=== PATIENT | male | born 1945 | race Caucasian/White ===

== ENCOUNTER 2022-12-16 01:38 | Emergency (ER) | payer MEDICARE, OTHER ==
--- NOTE | 2022-12-16 01:43 | ERPHSYRPT ---
- History of Present Illness Time Seen by Provider: 12/16/22 01:43 Source: patient Exam Limitations: no limitations Physician History: This is a 77-year-old white male who is obese and has a history of high blood pressure. Originally, he was told to take metoprolol medication twice a day. However, during the day he was "bottoming out" on his blood pressure so he has been only taking his metoprolol in the evenings. He did take his evening dose. Patient also has a pacemaker in place. Patient has a history of atrial fibrillation and is taking Eliquis. Patient has a history of hyperlipidemia, gastroesophageal reflux disease and hypertension. This morning, patient stated there was a brief "twinge" of substernal nonradiating chest pain that he just noticed just prior to the time he took his blood pressure that showed a systolic pressure of approximately 200. It is completely resolved and he has no pain whatsoever in his chest. His gave him an Ativan 1 mg orally that she had of his that was old. Patient arrives to the emergency department a little anxious but in no pain. He has no shortness of breath. He has no other complaints. Timing/Duration: today Severity: mild (To moderate) Associated Symptoms: other Allergies/Adverse Reactions: No Known Drug Allergies Allergy (Unverified 12/16/22 01:47) Home Medications: Apixaban [Eliquis 5 mg Tablet] 5 mg PO DAILY 12/16/22 [History] Metoprolol Succinate [Toprol Xl] 25 mg PO BID 12/16/22 [History] Naproxen 500 mg PO BID PRN 12/16/22 [History] PANTOPRAZOLE 40 mg Tablet [Protonix 40MG Tablet] 40 mg PO DAILY 12/16/22 [History] Pravastatin Sodium 40 mg PO DAILY 12/16/22 [History] lisinopriL [Lisinopril] 5 mg PO DAILY 12/16/22 [History] Travel Risk - International Travel Have you traveled outside of the country in past 3 weeks: No - Coronavirus Screening Are you exhibiting any of the following symptoms?: No Close contact with a COVID-19 positive Pt in past 14-21 Days: No - Review of Systems Constitutional: No Symptoms Eyes: No Symptoms Ears, Nose, & Throat: No Symptoms Respiratory: No Symptoms Cardiac: No Symptoms Abdominal/Gastrointestinal: No Symptoms Genitourinary Symptoms: No Symptoms Musculoskeletal: No Symptoms Skin: No Symptoms Neurological: No Symptoms Psychological: No Symptoms Endocrine: No Symptoms Hematologic/Lymphatic: No Symptoms Immunological/Allergic: No Symptoms All Other Systems: Reviewed and Negative - Past Medical History Pertinent Past Medical History: Yes - Past Surgical History Past Surgical History: Yes - Nursing Vital Signs Nursing Vital Signs: Initial Vital Signs Temperature 96.9 F 12/16/22 01:48 Pulse Rate 105 H 12/16/22 01:48 Respiratory Rate 20 12/16/22 01:48 Blood Pressure 178/88 12/16/22 01:48 O2 Sat by Pulse Oximetry 98 12/16/22 01:48 Pain Scale Pain Intensity 0 - Physical Exam General Appearance: no apparent distress, alert, anxiety, obese Eye Exam: PERRL/EOMI, eyes nml inspection Ears, Nose, Throat Exam: normal ENT inspection, moist mucous membranes Neck Exam: normal inspection, non-tender, supple, full range of motion Respiratory Exam: normal breath sounds, lungs clear, airway intact, No chest tenderness, No respiratory distress Cardiovascular Exam: irregular Gastrointestinal/Abdomen Exam: soft, normal bowel sounds, No tenderness Rectal Exam: not done Back Exam: normal inspection, normal range of motion, No CVA tenderness, No vertebral tenderness Extremity Exam: normal inspection, normal range of motion, pelvis stable Neurologic Exam: alert, oriented x 3, cooperative, 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 I interpreted the twelve-lead EKG.) Ordered Tests: Active Orders 24 hr Category Date Time Status CBC W DIFF Stat Lab 12/16/22 02:19 Completed CMP Stat Lab 12/16/22 02:19 Completed TROPONIN Q4H Lab 12/16/22 02:38 Completed TROPONIN Q4H Lab 12/16/22 06:45 Ordered TROPONIN Q4H Lab 12/16/22 10:45 Ordered UA W/RFX UR CULTURE Stat Lab 12/16/22 02:19 Completed Medication Summary Discontinued Medications Generic Name Dose Route Start Last Admin Trade Name Emmanuelq PRN Reason Stop Dose Admin Metoprolol Tartrate 5 mg 12/16/22 02:35 Metoprolol Tartrate 5 Mg/5 Ml Vial IV 12/16/22 02:36 STAT ONE Metoprolol Tartrate Confirm 12/16/22 02:38 Metoprolol Tartrate 5 Mg/5 Ml Vial Administered 12/16/22 02:39 Dose 5 mg IV .STK-MED ONE Lab/Rad Data: Laboratory Result Diagrams 12/16/22 02:19 12/16/22 02:19 Laboratory Results 12/16/22 12/16/22 12/16/22 Range/Units 02:38 02:19 02:19 WBC 7.0 (4.0-10.5) x10^3/uL RBC 4.83 (4.1-5.6) x10^6/uL Hgb 14.9 (12.5-18.0) g/dL Hct 44.5 (42-50) % MCV 92.1 (78-100) fL MCH 30.8 (26-32) pg MCHC 33.5 (32-36) g/dL RDW 11.9 (11.5-14.0) % Plt Count 230 (150-450) x10^3/uL MPV 10.2 (7.5-11.0) fL Gran % 46.8 (36.0-66.0) % Immature Gran % (Auto) 0.1 (0.00-0.4) % Nucleat RBC Rel Count 0.0 (0.00-0.1) % Eos # (Auto) 0.11 (0-0.5) x10^3/uL Immature Gran # (Auto) 0.01 (0.00-0.03) x10^3u/L Absolute Lymphs (auto) 3.08 (1.0-4.6) x10^3/uL Absolute Monos (auto) 0.49 (0.0-1.3) x10^3/uL Absolute Nucleated RBC 0.00 (0.00-0.01) x10^3u/L Lymphocytes % 44.1 H (24.0-44.0) % Monocytes % 7.0 (0.0-12.0) % Eosinophils % 1.6 (0.00-5.0) % Basophils % 0.4 (0.0-0.4) % Absolute Granulocytes 3.26 (1.4-6.9) x10^3/uL Basophils # 0.03 (0-0.4) x10^3/uL Sodium 144 (137-145) mmol/L Potassium 3.8 (3.5-5.1) mmol/L Chloride 106 (98-107) mmol/L Carbon Dioxide 26 (22-30) mmol/L Anion Gap 15.3 H (5-15) MEQ/L BUN 13 (9-20) mg/dL Creatinine 0.90 (0.66-1.25) mg/dL Estimated GFR > 60.0 ML/MIN Glucose 115 H (74-106) mg/dL Calcium 8.8 (8.4-10.2) mg/dL Total Bilirubin 0.90 (0.2-1.3) mg/dL AST 44 (17-59) U/L ALT 28 (0-50) U/L Alkaline Phosphatase 59 (38-126) U/L Troponin I < 0.012 (0.000-0.034) ng/mL Serum Total Protein 8.4 H (6.3-8.2) g/dL Albumin 4.5 (3.5-5.0) g/dL Urine Color (Yellow) Urine Appearance (Clear) Urine pH (4.6-8.0) Ur Specific [place] (1.005-1.030) Urine Protein (Negative) Urine Glucose (UA) (Negative) mg/dL Urine Ketones (Negative) Urine Blood (Negative) Urine Nitrite (Negative) Urine Bilirubin (Negative) Urine Urobilinogen (0.2) mg/dL Ur Leukocyte Esterase (Negative) U Hyaline Cast (Auto) (0-2) /LPF Urine Microscopic RBC (0-5) /HPF Urine Microscopic WBC (0-5) /HPF Ur Epithelial Cells (None Seen) /HPF Urine Bacteria (None Seen) /HPF Urine Culture Reflexed (NO) 12/16/22 Range/Units 02:19 WBC (4.0-10.5) x10^3/uL RBC (4.1-5.6) x10^6/uL Hgb (12.5-18.0) g/dL Hct (42-50) % MCV (78-100) fL MCH (26-32) pg MCHC (32-36) g/dL RDW (11.5-14.0) % Plt Count (150-450) x10^3/uL MPV (7.5-11.0) fL Gran % (36.0-66.0) % Immature Gran % (Auto) (0.00-0.4) % Nucleat RBC Rel Count (0.00-0.1) % Eos # (Auto) (0-0.5) x10^3/uL Immature Gran # (Auto) (0.00-0.03) x10^3u/L Absolute Lymphs (auto) (1.0-4.6) x10^3/uL Absolute Monos (auto) (0.0-1.3) x10^3/uL Absolute Nucleated RBC (0.00-0.01) x10^3u/L Lymphocytes % (24.0-44.0) % Monocytes % (0.0-12.0) % Eosinophils % (0.00-5.0) % Basophils % (0.0-0.4) % Absolute Granulocytes (1.4-6.9) x10^3/uL Basophils # (0-0.4) x10^3/uL Sodium (137-145) mmol/L Potassium (3.5-5.1) mmol/L Chloride (98-107) mmol/L Carbon Dioxide (22-30) mmol/L Anion Gap (5-15) MEQ/L BUN (9-20) mg/dL Creatinine (0.66-1.25) mg/dL Estimated GFR ML/MIN Glucose (74-106) mg/dL Calcium (8.4-10.2) mg/dL Total Bilirubin (0.2-1.3) mg/dL AST (17-59) U/L ALT (0-50) U/L Alkaline Phosphatase (38-126) U/L Troponin I (0.000-0.034) ng/mL Serum Total Protein (6.3-8.2) g/dL Albumin (3.5-5.0) g/dL Urine Color Yellow (Yellow) Urine Appearance Clear (Clear) Urine pH 6.5 (4.6-8.0) Ur Specific [place] <=1.005 (1.005-1.030) Urine Protein 100 A (Negative) Urine Glucose (UA) Negative (Negative) mg/dL Urine Ketones Negative (Negative) Urine Blood Trace (Negative) Urine Nitrite Negative (Negative) Urine Bilirubin Negative (Negative) Urine Urobilinogen 0.2 (0.2) mg/dL Ur Leukocyte Esterase Negative (Negative) U Hyaline Cast (Auto) NONE SEEN (0-2) /LPF Urine Microscopic RBC 0-2 (0-5) /HPF Urine Microscopic WBC 0-2 (0-5) /HPF Ur Epithelial Cells None Seen (None Seen) /HPF Urine Bacteria None Seen (None Seen) /HPF Urine Culture Reflexed NO (NO) - Progress Progress: improved, re-examined Progress Note: 12/16/22 03:00 This patient's medical issue is 1 of moderate complexity. Patient has a signi ficant medical history in this, in combination with the patient's primary complaint, history of present illness, physical findings on examination contributed to the decision I made to place an intravenous line, obtain a twelve-lead EKG, obtain blood work and urinalysis. I reviewed the results of e studies. Based on the studies, and based on the patient's current vital signs, the patient is to be discharged to home, is to follow-up with his director inpatient headache program and primary care provider for further evaluation management. He is also to take his medication as prescribed. 12/16/22 03:08 At the time of discharge he has no chest pain. He is feeling well. His oxygen saturation on room air is 99%. His respiratory rate is 17. His blood pressure is 135/91. Counseled pt/family regarding: lab results, diagnosis, need for follow-up Medical Desision Making - Independent Historian Additional History obtained from: Spouse - Discussion of managment Reviewed:: Test results Agreed on:: Treatment plan, need for follow-up - Diagnostic Testing Diagnostic test were ordered, analyzed, and reviewed by me: Yes - Risk of complications Low Risk: Low risk of morbidity from additional dx testing or treatment - Departure Departure Disposition: Home Clinical Impression: Hypertension Condition: Stable Critical Care Time: No Referrals: DOCTOR,NO FAMILY [Primary Care Provider] - Follow up/PCP as directed Additional Instructions: Take your medication as prescribed. Call your primary care provider and cardio logist on 12/17/2022 and make them aware of your visit here in our emergency department and make a follow-up appointment for further evaluation management.
[2022-12-16 01:59] VITALS: O2SAT 98
[2022-12-16 02:36] LABS: Bacteria None Seen /HPF (None Seen); Bilirubin Negative (Negative); Blood Trace (Negative); Epithelial Cells None Seen /HPF (None Seen); Glucose, Urine Negative (Negative); Hyaline Casts NONE SEEN /LPF (0-2); Ketones Negative (Negative); Leukocyte Esterase Negative (Negative); Nitrite Negative (Negative); Ph 6.5 (4.6-8.0); Protein,Urine Dip 100 (Negative); RBC 0-2 /HPF (0-5); Specific Gravity <=1.005 (1.005-1.030); Urobilinogen 0.2 mg/dL (0.2); WBC 0-2 /HPF (0-5)
[2022-12-16 02:37] LABS: ADD URINE CULTURE? NO (NO); Appearance Clear (Clear)
[2022-12-16] MEDS ORDERED: LOPRESSOR INJECTION IV ONE (02:38)
[2022-12-16 02:39] LABS: ALBUMIN 4.5 g/dL (3.5-5.0); ALKALINE PHOSPHATASE 59 U/L (38-126); ANION GAP 15.3 MEQ/L (5-15); BLOOD UREA NITROGEN 13 mg/dL (9-20); CHLORIDE 106 mmol/L (98-107); Calcium 8.8 mg/dL (8.4-10.2); Carbon Dioxide 26 mmol/L (22-30); EST GLOMERULAR FILTRATION RATE > 60.0 ML/MIN; Glucose 115 mg/dL (74-106); Potassium 3.8 mmol/L (3.5-5.1); SGOT/AST 44 U/L (17-59); SGPT/ALT 28 U/L (0-50); SODIUM 144 mmol/L (137-145); Total Protein 8.4 g/dL (6.3-8.2)
[2022-12-16] MEDS: LOPRESSOR INJECTION IV ONE ×2 (02:39→03:11)
[2022-12-16 02:40] LABS: Absolute Neutrophil Ct (ANC) 3.26 x10^3/uL (1.4-6.9); BASOPHIL % 0.4 % (0.0-0.4); Basophil (Absolute #) 0.03 x10^3/uL (0-0.4); Eosinophil % 1.6 % (0.00-5.0); Eosinophil (Absolute #) 0.11 x10^3/uL (0-0.5); Hematocrit 44.5 % (42-50); Hemoglobin 14.9 g/dL (12.5-18.0); IMMATURE GRAN # 0.01 x10^3u/L (0.00-0.03); IMMATURE GRAN % 0.1 % (0.00-0.4); Lymphocyte (Absolute #) 3.08 x10^3/uL (1.0-4.6); Lymphocytes % 44.1 % (24.0-44.0); Mean Cell Volume 92.1 fL (78-100); Mean Corpuscular Hemoglobin 30.8 pg (26-32); Mean Corpuscular Hgb Concent. 33.5 g/dL (32-36); Mean Platelet Volume 10.2 fL (7.5-11.0); Monocyte (Absolute #) 0.49 x10^3/uL (0.0-1.3); Neutrophil % 46.8 % (36.0-66.0); Platelet Count 230 x10^3/uL (150-450); Red Blood Count 4.83 x10^6/uL (4.1-5.6); Red Cell Distribution Width 11.9 % (11.5-14.0)
[2022-12-16 03:15] VITALS: BP 126/78; PULSE 90
== END 2022-12-16 03:22 | disposition home or self-care (01) ==
LOC: ED 01:38
DX: I10 Essential (primary) hypertension (principal); R07.9 Chest pain, unspecified; E78.5 Hyperlipidemia, unspecified; Z79.01 Long term (current) use of anticoagulants; Z79.899 Other long term (current) drug therapy
CPT/HCPCS: 36415; 80053; 81001; 84484; 85025; 99283

== ENCOUNTER 2025-02-09 12:59 | Observation (INO) | payer MEDICARE, OTHER ==
[2025-02-09 13:38] LABS: Absolute Neutrophil Ct (ANC) 3.97 x10^3/uL (1.78-5.38); BASOPHIL % 0.3 % (0.2-1.2); Basophil (Absolute #) 0.02 x10^3/uL (0.01-0.08); Eosinophil % 1.3 % (0.8-7.0); Eosinophil (Absolute #) 0.08 x10^3/uL (0.04-0.54); Hematocrit 41.5 % (40.1-51.0); Hemoglobin 13.9 g/dL (13.7-17.5); IMMATURE GRAN # 0.02 x10^3u/L (0.001-0.031); IMMATURE GRAN % 0.3 % (0.001-0.429); Lymphocyte (Absolute #) 1.71 x10^3/uL (1.32-3.57); Lymphocytes % 26.8 % (21.8-53.1); Mean Cell Volume 93.5 fL (79.0-92.2); Mean Corpuscular Hemoglobin 31.3 pg (25.7-32.2); Mean Corpuscular Hgb Concent. 33.5 g/dL (32.3-36.5); Mean Platelet Volume 10.2 fL (9.4-12.4); Monocyte (Absolute #) 0.57 x10^3/uL (0.30-0.82); Monocytes % 8.9 % (5.3-12.2); Neutrophil % 62.4 % (34.0-67.9); Platelet Count 247 x10^3/uL (163-337); Red Blood Count 4.44 x10^6/uL (4.63-6.08); Red Cell Distribution Width 12.8 % (11.6-14.4); White Blood Count 6.4 x10^3/uL (4.23-9.07)
--- NOTE | 2025-02-09 13:40 | ERPHSYRPT ---
- History of Present Illness Time Seen by Provider: 02/09/25 13:25 Source: patient Exam Limitations: no limitations Patient Subjective Stated Complaint: shortness of breath feels like his heart is out of whack Triage Nursing Assessment: pt is alert and orientedx3, able to ambulate, started feeling short of breath and dizzy at home. no edema noted, lung sounds clear bialterally, pulses equal bilateral radius, pupils perrla3. patient states he took extra dose of metoprolol at [address] kenneycted when he felt his heart go out of whack. Physician History: Patient is a 79-year-old male presents to our ED for evaluation of shortness of breath, dizziness intermittent heart palpitations. Patient states symptoms occur when he ambulates. No trauma no fever no cough. Patient believes it is his heart. Patient has a pacemaker. Patient's is at the bedside. She contacted the patient's interactive media designer who is requesting the pacemaker to be interrogated. Patient's symptoms are mild to moderate in intensity. No specific worsening or improving factors. Patient voices no other complaints or concerns at this time. Portions of this note were created with voice recognition technology. There may be grammatical, spelling, punctuation or sound alike errors Timing/Duration: today Activities at Onset: activity Severity of Dyspnea-Max: moderate Severity of Dyspnea-Current: mild Possible Cause: occasional episodes Modifying Factors: Improves With: activity Associated Symptoms: dizziness Allergies/Adverse Reactions: No Known Drug Allergies Allergy (Unverified 12/16/22 01:47) Home Medications: Apixaban [Eliquis 5 mg Tablet] 5 mg PO DAILY 12/16/22 [History] Metoprolol Succinate [Toprol Xl] 25 mg PO BID 12/16/22 [History] Naproxen 500 mg PO BID PRN 12/16/22 [History] PANTOPRAZOLE 40 mg Tablet [Protonix 40MG Tablet] 40 mg PO DAILY 12/16/22 [History] Pravastatin Sodium 40 mg PO DAILY 12/16/22 [History] lisinopriL [Lisinopril] 5 mg PO DAILY 12/16/22 [History] Hx Tetanus, Diphtheria Vaccination/Date Given: No Hx Influenza Vaccination/Date Given: Yes Hx Pneumococcal Vaccination/Date Given: Yes Travel Risk - International Travel Have you traveled outside of the country in past 3 weeks: No - Emerging Infectious Disease Are you exhibiting symptoms associated with any current EIDs: No - Review of Systems Constitutional: No Symptoms, No Fever, No Chills Eyes: No Symptoms Ears, Nose, & Throat: No Symptoms Respiratory: No Symptoms, No Cough, No Dyspnea Cardiac: No Symptoms, No Chest Pain, No Edema, No Syncope Abdominal/Gastrointestinal: No Symptoms, No Abdominal Pain, No Nausea, No Vomiting, No Diarrhea Genitourinary Symptoms: No Symptoms, No Dysuria Musculoskeletal: No Symptoms, No Back Pain, No Neck Pain Skin: No Symptoms, No Rash Neurological: No Symptoms, No Dizziness, No Focal Weakness, No Sensory Changes Psychological: No Symptoms Endocrine: No Symptoms Hematologic/Lymphatic: No Symptoms Immunological/Allergic: No Symptoms All Other Systems: Reviewed and Negative - Past Medical History Pertinent Past Medical History: Yes Neurological History: No Pertinent History ENT History: Cataracts, Glaucoma Cardiac History: Arrhythmia, High Cholesterol, Hypertension Respiratory History: No Pertinent History Endocrine Medical History: No Pertinent History Musculoskeletal History: Arthritis GI Medical History: GERD, Hemorrhoids History: No Pertinent History Psycho-Social History: No Pertinent History Male Reproductive Disorders: No Pertinent History - Past Surgical History Past Surgical History: Yes Neuro Surgical History: No Pertinent History Cardiac: Pacemaker Respiratory: No Pertinent History Gastrointestinal: No Pertinent History Genitourinary: No Pertinent History Musculoskeletal: Orthopedic Surgery Male Surgical History: No Pertinent History Other Surgical History: left knee replacement - Social History Smoking Status: Former smoker Exposure to second hand smoke: No Drug Use: none - Social Determinants of Health Will the patient participate in the screening: Declined to provide - Nursing Vital Signs Nursing Vital Signs: Initial Vital Signs Temperature 97.3 F 02/09/25 12:59 Pulse Rate 60 02/09/25 12:59 Respiratory Rate 12 02/09/25 12:59 Blood Pressure 142/79 02/09/25 12:59 O2 Sat by Pulse Oximetry 98 02/09/25 12:59 Pain Scale Pain Intensity 0 - Physical Exam General Appearance: no apparent distress, alert Eye Exam: PERRL/EOMI, eyes nml inspection Ears, Nose, Throat Exam: hearing grossly normal, normal ENT inspection, normal pharynx Neck Exam: normal inspection, supple Respiratory Exam: normal breath sounds, lungs clear Cardiovascular/Chest Exam: normal heart sounds, regular rate/rhythm Abdominal/Gastrointestinal Exam: soft, No tenderness, No distention, No mass Extremity Exam: non-tender, normal range of motion, normal inspection, no calf tenderness, no pedal edema Neurologic Exam: alert, oriented x 3, cooperative, 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 tested, sensation nml, No motor deficits Skin Exam: normal color, warm, No dry Lymphatic Exam: No adenopathy SpO2 Interpretation: normal SpO2: 98 O2 Delivery: Room Air - Course Nursing assessment & vital signs reviewed: Yes EKG Interpreted by Me: RATE (66 atrial paced complexes,), NORMAL AXIS, NORMAL INTERVALS, NORMAL QRS, Right Bundle Branch Block - Radiology Exams Chest X-ray Interpretation: Teleradiologist Report (Nonacute chest with chronic features) Ordered Tests: Active Orders 24 hr Category Date Time Status Candy Dipper STAT Care 02/09/25 13:34 Active EKG-ER Only STAT Care 02/09/25 13:58 Active Pulse Oximetry (ED) STAT Care 02/09/25 13:33 Active CHEST 1 VIEW (PORTABLE) Stat Exams 02/09/25 16:15 Completed CBC W DIFF Stat Lab 02/09/25 13:30 Completed CMP Stat Lab 02/09/25 13:30 Completed D-DIMER QUANTITATIVE Stat Lab 02/09/25 13:30 Completed TROPONIN Q4H Lab 02/09/25 13:30 Completed TROPONIN Q4H Lab 02/09/25 17:10 Completed TROPONIN Q4H Lab 02/09/25 21:45 Ordered Transfer Order Routine Transfer 02/09/25 Ordered Medication Summary Discontinued Medications Generic Name Dose Route Start Last Admin Trade Name Freq PRN Reason Stop Dose Admin Aspirin 324 mg 02/09/25 18:15 02/09/25 18:27 Aspirin 81 Mg Tab.Chew PO 02/09/25 18:16 324 mg STAT ONE Administration Aspirin Confirm 02/09/25 18:24 Aspirin 81 Mg Tab.Chew Administered 02/09/25 18:25 Dose 324 mg .ROUTE .STK-MED ONE Nitroglycerin 1 gm 02/09/25 18:16 02/09/25 18:27 Nitroglycerin 1 Gm Packet TOP 02/09/25 18:17 1 gm STAT ONE Administration Nitroglycerin Confirm 02/09/25 18:24 Nitroglycerin 1 Gm Packet Administered 02/09/25 18:25 Dose 1 gm .ROUTE .STK-MED ONE Lab/Rad Data: Laboratory Result Diagrams 02/09/25 13:30 02/09/25 13:30 Laboratory Results 02/09/25 02/09/25 02/09/25 Range/Units 17:10 13:40 13:30 WBC (4.23-9.07) x10^3/uL RBC (4.63-6.08) x10^6/uL Hgb (13.7-17.5) g/dL Hct (40.1-51.0) % MCV (79.0-92.2) fL MCH (25.7-32.2) pg MCHC (32.3-36.5) g/dL RDW (11.6-14.4) % Plt Count (163-337) x10^3/uL MPV (9.4-12.4) fL Gran % (34.0-67.9) % Immature Gran % (Auto) (0.001-0.429) % Nucleat RBC Rel Count (0.00-0.2) % Eos # (Auto) (0.04-0.54) x10^3/uL Immature Gran # (Auto) (0.001-0.031) x10^3u/L Absolute Lymphs (auto) (1.32-3.57) x10^3/uL Absolute Monos (auto) (0.30-0.82) x10^3/uL Absolute Nucleated RBC (0.00-0.012) x10^3u/L Lymphocytes % (21.8-53.1) % Monocytes % (5.3-12.2) % Eosinophils % (0.8-7.0) % Basophils % (0.2-1.2) % Absolute Granulocytes (1.78-5.38) x10^3/uL Basophils # (0.01-0.08) x10^3/uL D-Dimer (0.0-0.50) mg/L Sodium (135-145) mmol/L Potassium (3.5-5.1) mmol/L Chloride (98-107) mmol/L Carbon Dioxide (22-30) mmol/L Anion Gap (5-15) MEQ/L BUN (9-20) mg/dL Creatinine (0.66-1.25) mg/dL Estimated GFR ML/MIN Glucose (74-106) mg/dL Calcium (8.4-10.2) mg/dL Total Bilirubin (0.2-1.3) mg/dL AST (17-59) U/L ALT (0-50) U/L Alkaline Phosphatase (38-126) U/L Troponin I 0.018 < 0.012 (0.000-0.033) ng/mL Serum Total Protein (6.3-8.2) g/dL Albumin (3.5-5.0) g/dL Influenza Type A Ag NEGATIVE (NEGATIVE) Influenza Type B Ag NEGATIVE (NEGATIVE) RSV (PCR) NEGATIVE (NEGATIVE) SARS-CoV-2 (PCR) NEGATIVE (NEGATIVE) 02/09/25 02/09/25 02/09/25 Range/Units 13:30 13:30 13:30 WBC 6.4 (4.23-9.07) x10^3/uL RBC 4.44 L (4.63-6.08) x10^6/uL Hgb 13.9 (13.7-17.5) g/dL Hct 41.5 (40.1-51.0) % MCV 93.5 H (79.0-92.2) fL MCH 31.3 (25.7-32.2) pg MCHC 33.5 (32.3-36.5) g/dL RDW 12.8 (11.6-14.4) % Plt Count 247 (163-337) x10^3/uL MPV 10.2 (9.4-12.4) fL Gran % 62.4 (34.0-67.9) % Immature Gran % (Auto) 0.3 (0.001-0.429) % Nucleat RBC Rel Count 0.0 (0.00-0.2) % Eos # (Auto) 0.08 (0.04-0.54) x10^3/uL Immature Gran # (Auto) 0.02 (0.001-0.031) x10^3u/L Absolute Lymphs (auto) 1.71 (1.32-3.57) x10^3/uL Absolute Monos (auto) 0.57 (0.30-0.82) x10^3/uL Absolute Nucleated RBC 0.00 (0.00-0.012) x10^3u/L Lymphocytes % 26.8 (21.8-53.1) % Monocytes % 8.9 (5.3-12.2) % Eosinophils % 1.3 (0.8-7.0) % Basophils % 0.3 (0.2-1.2) % Absolute Granulocytes 3.97 (1.78-5.38) x10^3/uL Basophils # 0.02 (0.01-0.08) x10^3/uL D-Dimer 0.38 (0.0-0.50) mg/L Sodium 141 (135-145) mmol/L Potassium 4.2 (3.5-5.1) mmol/L Chloride 107 (98-107) mmol/L Carbon Dioxide 22 (22-30) mmol/L Anion Gap 16.5 H (5-15) MEQ/L BUN 13 (9-20) mg/dL Creatinine 0.87 (0.66-1.25) mg/dL Estimated GFR 88.9 ML/MIN Glucose 104 (74-106) mg/dL Calcium 8.9 (8.4-10.2) mg/dL Total Bilirubin 1.50 H (0.2-1.3) mg/dL AST 44 (17-59) U/L ALT 26 (0-50) U/L Alkaline Phosphatase 70 (38-126) U/L Troponin I (0.000-0.033) ng/mL Serum Total Protein 7.2 (6.3-8.2) g/dL Albumin 4.5 (3.5-5.0) g/dL Influenza Type A Ag (NEGATIVE) Influenza Type B Ag (NEGATIVE) RSV (PCR) (NEGATIVE) SARS-CoV-2 (PCR) (NEGATIVE) - Progress Progress: improved Air Movement: good Progress Note: Case discussed with hospitalist who accepts admission to observation. I spoke to Dr. Mena at 1949. Patient is a 79-year-old male presents to our ED for evaluation of heart palpitations, fatigue shortness of breath and dizziness. Physical exam nonremarkable. EKG shows a paced rhythm. D-dimer negative. Chest x-ray negative. Patient's interactive media designer Dr. Ribeiro is at [facility] however [facility] is not accepting transfers. Family chose to stay in our ED until a bed becomes available at [facility]. Case discussed with hospitalist who accepts admission to observation. Patient currently asymptomatic vital stable. at bedside. They voiced no other complaints or concerns at this time. Portions of this note were created with voice recognition technology. There may be grammatical, spelling, punctuation or sound alike errors Complexity of problem addressed is moderate acute complicated. No critical care time. Complexity of data reviewed and analyzed is extensive. Test ordered test reviewed results analyzed and correlated clinically with history and physical exam. Risk of complication and or risk of morbidity/mortality of patient management is high. Patient requires hospitalization for further evaluation and treatment. Vital stable. Time spent to admit patient approximately 20 minutes. Plan of care established for shared decision making. No social determinants of health present to impede follow-up. Portions of this note were created with voice recognition technology. There may be grammatical, spelling, punctuation or sound alike errors 02/09/25 19:49 Blood Culture(s) Obtained: No Antibiotics given: No Counseled pt/family regarding: lab results, diagnosis - Departure Departure Disposition: Observation Clinical Impression: Heart palpitations, Dizziness, Shortness of breath, Fatigue Condition: Stable Critical Care Time: No Referrals: DOCTOR,NO FAMILY [NON-STAFF PHY W/O PRIVILEGES, UNKNOWN] - Follow up/PCP as directed
[2025-02-09 13:45] LABS: ALBUMIN 4.5 g/dL (3.5-5.0); ANION GAP 16.5 MEQ/L (5-15); BILIRUBIN,TOTAL 1.5 mg/dL (0.2-1.3); Calcium 8.9 mg/dL (8.4-10.2); Creatinine 1 0.87 mg/dL (0.66-1.25); EST GLOMERULAR FILTRATION RATE 88.9 ML/MIN; Potassium 4.2 mmol/L (3.5-5.1); Total Protein 7.2 g/dL (6.3-8.2)
[2025-02-09 14:20] LABS: INFLUENZA A NEGATIVE (NEGATIVE); INFLUENZA B NEGATIVE (NEGATIVE); RESPIRATORY SYNCTIAL VIRUS NEGATIVE (NEGATIVE); SARS-CoV-2 Xpert Express NEGATIVE (NEGATIVE)
--- NOTE | 2025-02-09 16:46 | XRAY ---
Indication: Short of breath. Comparison: May 01, 2011 Portable chest again hyperinflated with new minimal left base subsegmental atelectasis/scarring. Remaining lungs clear. Heart not enlarged with new left pacemaker. Bony thorax intact again with osteopenia and mild degenerative changes. Impression: Nonacute chest with chronic features.
[2025-02-09] MEDS ORDERED: BABY ASPIRIN 81 MG CHEW ONE (18:24)
[2025-02-09] MEDS ORDERED: NITRO-BID 2% UD PACKETS ONE (18:24)
[2025-02-09] MEDS: NITRO-BID 2% UD PACKETS TOP ONE (18:27)
[2025-02-09] MEDS: BABY ASPIRIN 81 MG CHEW PO ONE (18:27)
[2025-02-09] MEDS ORDERED: Zofran 4 MG/2 ML VIAL IV PRN (21:44)
--- NOTE | 2025-02-09 21:51 | PCM.HP ---
History of Present Illness - Chief Complaint Chief Complaint: Heart palpitations, dizziness Date: 02/09/25 History of Present Illness: is a 79 year old male With past medical history significant for hypertension, status post recent maker placement, GERD, atrial fibrillation, who came to ER complaining of feeling tired, short of breath, nauseated, he did complain of palpitation as well he told me that the palpitation is not something new for him he keeps them frequently and his pool attendant is well aware about it. He mostly came to ER feeling quite fatigued unwell that is brand new for him, some dizziness with shortness of breath as well. He denied having any fever cough congestion no other GI urinary symptoms reported. In the ER his vital signs were pretty stable and so does all the blood workup including troponin D-dimer, EKG complete unremarkable his rhythm was paced, his pool attendant was contacted at [facility] they are currently not accepting any transfer due to bed unavailability patient is getting admitted to [place] for observation overnight. - Review of Systems All Other Systems: Reviewed and Negative (14 systems reviewed and marked -ve ) Medications & Allergies Home Medications: Home Medication List Apixaban [Eliquis 5 mg Tablet] 5 mg PO DAILY 12/16/22 [History Confirmed 02/09/25] Metoprolol Succinate [Toprol Xl] 75 mg PO BID 12/16/22 [History Confirmed 02/09/25] PANTOPRAZOLE 40 mg Tablet [Protonix 40MG Tablet] 20 mg PO DAILY 12/16/22 [History Confirmed 02/09/25] Pravastatin Sodium 40 mg PO DAILY 12/16/22 [History Confirmed 02/09/25] lisinopriL [Lisinopril] 5 mg PO DAILY 12/16/22 [History Confirmed 02/09/25] Sucralfate [Carafate] 500 mg PO QID 02/09/25 [History Confirmed 02/09/25] Latanoprost 2.5 ml OP DAILY 02/10/25 [History Confirmed 02/10/25] Timolol Maleate/Dorzolam HCl [Cosopt Ophthalmic 10 ml] 10 ml BID 02/10/25 [History Confirmed 02/10/25] Allergies/Adverse Reactions: Allergies Allergy/AdvReac Type Severity Reaction Status Date / Time No Known Drug Allergies Allergy Unverified 12/16/22 01:47 - Past Medical History Past Medical History: Yes Neurological History: No Pertinent History ENT History: Cataracts, Glaucoma Cardiac History: Arrhythmia, High Cholesterol, Hypertension Respiratory History: No Pertinent History Endocrine Medical History: No Pertinent History Musculoskelatal History: Arthritis GI Medical History: GERD, Hemorrhoids History: No Pertinent History Pyscho-Social History: No Pertinent History Male Reproductive Disorders: No Pertinent History - Past Surgical History Past Surgical History: Yes Neuro Surgical History: No Pertinent History Cardiac History: Pacemaker Respiratory Surgery: No Pertinent History GI Surgical History: No Pertinent History Genitourinary Surgical Hx: No Pertinent History Musculskeletal Surgical Hx: Orthopedic Surgery Male Surgical History: No Pertinent History Other Surgical History: left knee replacement Significant Family History: no pertinent family hx - Social History Smoking Status: Former smoker Exposure to second hand smoke: No Alcohol: Weekly Drug Use: none - Social Determinants of Health Will the patient participate in the screening: Declined to provide - Physical Exam Vital Signs: Vital Signs - 24 hr Temp Pulse Resp BP BP Pulse Ox 02/09/25 21:00 96 02/09/25 20:06 98 02/09/25 19:00 60 14 139/68 96 02/09/25 18:30 63 25 H 147/83 97 02/09/25 18:01 172/86 02/09/25 17:30 59 L 14 148/81 93 L 02/09/25 17:00 58 L 9 L 147/80 96 02/09/25 16:30 61 17 145/73 97 02/09/25 16:00 60 19 130/77 94 L 02/09/25 15:30 60 14 138/73 95 02/09/25 15:00 63 12 116/67 91 L 02/09/25 14:30 62 16 132/65 96 02/09/25 14:02 59 L 24 147/74 96 02/09/25 13:33 98 02/09/25 13:30 132/89 93 L 02/09/25 13:03 62 18 142/79 98 02/09/25 12:59 97.3 F 60 16 142/79 97 Additional Findings: 21:50 HEENT Middle aged, average built in no distress NECK Supple,no thyromegaly, CVS S1+S2 + 0, no murmers RESP Bilateral equal air entry without Crepts/Wheezes heard GIT Soft non tender,non distended Skin, No rah, no Bruises LEGS No Edema PSYCH Normal,mood, judgement and insight NEURO AOX3, no focal deficit Results - Labs Lab/Micro Results: Lab Results-Last 24 Hours 02/09/25 02/09/25 02/09/25 Range/Units 13:30 13:30 13:30 WBC 6.4 (4.23-9.07) x10^3/uL RBC 4.44 L (4.63-6.08) x10^6/uL Hgb 13.9 (13.7-17.5) g/dL Hct 41.5 (40.1-51.0) % MCV 93.5 H (79.0-92.2) fL MCH 31.3 (25.7-32.2) pg MCHC 33.5 (32.3-36.5) g/dL RDW 12.8 (11.6-14.4) % Plt Count 247 (163-337) x10^3/uL MPV 10.2 (9.4-12.4) fL Gran % 62.4 (34.0-67.9) % Immature Gran % (Auto) 0.3 (0.001-0.429) % Nucleat RBC Rel Count 0.0 (0.00-0.2) % Eos # (Auto) 0.08 (0.04-0.54) x10^3/uL Immature Gran # (Auto) 0.02 (0.001-0.031) x10^3u/L Absolute Lymphs (auto) 1.71 (1.32-3.57) x10^3/uL Absolute Monos (auto) 0.57 (0.30-0.82) x10^3/uL Absolute Nucleated RBC 0.00 (0.00-0.012) x10^3u/L Lymphocytes % 26.8 (21.8-53.1) % Monocytes % 8.9 (5.3-12.2) % Eosinophils % 1.3 (0.8-7.0) % Basophils % 0.3 (0.2-1.2) % Absolute Granulocytes 3.97 (1.78-5.38) x10^3/uL Basophils # 0.02 (0.01-0.08) x10^3/uL D-Dimer 0.38 (0.0-0.50) mg/L Sodium 141 (135-145) mmol/L Potassium 4.2 (3.5-5.1) mmol/L Chloride 107 (98-107) mmol/L Carbon Dioxide 22 (22-30) mmol/L Anion Gap 16.5 H (5-15) MEQ/L BUN 13 (9-20) mg/dL Creatinine 0.87 (0.66-1.25) mg/dL Estimated GFR 88.9 ML/MIN Glucose 104 (74-106) mg/dL Calcium 8.9 (8.4-10.2) mg/dL Total Bilirubin 1.50 H (0.2-1.3) mg/dL AST 44 (17-59) U/L ALT 26 (0-50) U/L Alkaline Phosphatase 70 (38-126) U/L Troponin I (0.000-0.033) ng/mL Serum Total Protein 7.2 (6.3-8.2) g/dL Albumin 4.5 (3.5-5.0) g/dL Influenza Type A Ag (NEGATIVE) Influenza Type B Ag (NEGATIVE) RSV (PCR) (NEGATIVE) SARS-CoV-2 (PCR) (NEGATIVE) 02/09/25 02/09/25 02/09/25 Range/Units 13:30 13:40 17:10 WBC (4.23-9.07) x10^3/uL RBC (4.63-6.08) x10^6/uL Hgb (13.7-17.5) g/dL Hct (40.1-51.0) % MCV (79.0-92.2) fL MCH (25.7-32.2) pg MCHC (32.3-36.5) g/dL RDW (11.6-14.4) % Plt Count (163-337) x10^3/uL MPV (9.4-12.4) fL Gran % (34.0-67.9) % Immature Gran % (Auto) (0.001-0.429) % Nucleat RBC Rel Count (0.00-0.2) % Eos # (Auto) (0.04-0.54) x10^3/uL Immature Gran # (Auto) (0.001-0.031) x10^3u/L Absolute Lymphs (auto) (1.32-3.57) x10^3/uL Absolute Monos (auto) (0.30-0.82) x10^3/uL Absolute Nucleated RBC (0.00-0.012) x10^3u/L Lymphocytes % (21.8-53.1) % Monocytes % (5.3-12.2) % Eosinophils % (0.8-7.0) % Basophils % (0.2-1.2) % Absolute Granulocytes (1.78-5.38) x10^3/uL Basophils # (0.01-0.08) x10^3/uL D-Dimer (0.0-0.50) mg/L Sodium (135-145) mmol/L Potassium (3.5-5.1) mmol/L Chloride (98-107) mmol/L Carbon Dioxide (22-30) mmol/L Anion Gap (5-15) MEQ/L BUN (9-20) mg/dL Creatinine (0.66-1.25) mg/dL Estimated GFR ML/MIN Glucose (74-106) mg/dL Calcium (8.4-10.2) mg/dL Total Bilirubin (0.2-1.3) mg/dL AST (17-59) U/L ALT (0-50) U/L Alkaline Phosphatase (38-126) U/L Troponin I < 0.012 0.018 (0.000-0.033) ng/mL Serum Total Protein (6.3-8.2) g/dL Albumin (3.5-5.0) g/dL Influenza Type A Ag NEGATIVE (NEGATIVE) Influenza Type B Ag NEGATIVE (NEGATIVE) RSV (PCR) NEGATIVE (NEGATIVE) SARS-CoV-2 (PCR) NEGATIVE (NEGATIVE) - Radiology Impressions Radiology Exams & Impressions: Radiology Procedures Category Date Time Status CHEST 1 VIEW (PORTABLE) Stat Exams 02/09/25 16:15 Completed ECHO W/2D AND DOPPLER [US] Routine Exams 02/09/25 21:48 Ordered - Other Procedures and Tests Respiratory Therapy 02/09/25 21:00 BiPap/CPAP HS Assessment/Plan (1) Heart palpitations Current Visit: Yes Status: Acute Code(s): R00.2 - PALPITATIONS (2) Fatigue Current Visit: Yes Status: Acute Code(s): R53.83 - OTHER FATIGUE (3) Hypertension Current Visit: No Status: Acute Code(s): I10 - ESSENTIAL (PRIMARY) HYPERTENSION Telemedicine Encounter - Telemedicine Encounter Telemedicine Encounter: The entirety of this encounter was performed via TelemedicineThis visit was performed using real-time audio and video connection between my location and thepatients locationwith the assistance of a surrogateat the patients location. Written or verbal consent was obtained from the patient/guardian to perform this visit usingCompring technology. Any patient questions regarding the telemedicine interaction were answered. Tiredness/Dizziness With ongoing palpitations Will keep admit on telemetry EKG showed paced rhythm Troponin unremarkable D-dimer negative Will check BNP, echocardiogram, CT chest to rule out PE PPM needs interrogated will check TSH/Vitamin B12, keep K/Mag at [address] head to r/o SDH in the setting of Eliquis use Patient is getting admitted for observation overnight hopefully will be t ransferred to [facility] in am under the care of his pool attendant Dr. Ribeiro Vitamin B12/Vitamin D def Started on supplements Hypertension Blood pressure remains fluctuating Will resume home blood pressure meds Atrial fibrillation Will resume Eliquis Resume home metoprolol GERD Continue pantoprazole DVT prophylaxis SCD/Eliquis CODE STATUS full Discharge planning pending clinical stability. I have reviewed patient lab vitals and imaging in detail question concerns were addressed
[2025-02-09] MEDS ORDERED: Toprol-Xl 25MG Tablets ONE (22:17)
[2025-02-09] MEDS: Toprol Xl 50 MG PO SCH (23:23)
[2025-02-10] MEDS ORDERED: Cyanocobalamin B-12 1000 MCG/ML SQ ONE (01:13)
[2025-02-10] MEDS ORDERED: Vitamin B-12 500 MCG ONE (01:58)
[2025-02-10] MEDS: VITAMIN D2 PO SCH (04:21)
[2025-02-10] MEDS: Vitamin B-12 500 MCG PO ONE (04:24)
[2025-02-10 05:38] LABS: Hematocrit 38.2 % (40.1-51.0); Hemoglobin 12.9 g/dL (13.7-17.5); Mean Cell Volume 93.9 fL (79.0-92.2); Mean Corpuscular Hemoglobin 31.7 pg (25.7-32.2); Mean Corpuscular Hgb Concent. 33.8 g/dL (32.3-36.5); Mean Platelet Volume 10.1 fL (9.4-12.4); Platelet Count 203 x10^3/uL (163-337); Red Blood Count 4.07 x10^6/uL (4.63-6.08); Red Cell Distribution Width 12.6 % (11.6-14.4); White Blood Count 5.4 x10^3/uL (4.23-9.07)
[2025-02-10 06:09] LABS: ANION GAP 13.1 MEQ/L (5-15); Calcium 8.5 mg/dL (8.4-10.2); Creatinine 1 1.03 mg/dL (0.66-1.25); EST GLOMERULAR FILTRATION RATE 74.8 ML/MIN; Potassium 3.5 mmol/L (3.5-5.1)
[2025-02-10] MEDS: Carafate 1 GM PO SCH (07:31)
[2025-02-10 08:29] VITALS: PULSE 61
[2025-02-10] MEDS: ELIQUIS 2.5 MG TABLET PO SCH ×2 (09:21→10:12)
[2025-02-10] MEDS: ZOCOR 20MG PO SCH (09:45)
[2025-02-10] MEDS: Protonix 20MG Tablet PO SCH (09:45)
[2025-02-10] MEDS: Zestril 5 MG PO SCH (09:46)
[2025-02-10] MEDS ORDERED: NON-FORMULARY ITEM (Pravastatin Sodium [Pravastatin Sodium] 40 MG Tablet) PO SCH (10:00)
[2025-02-10] MEDS ORDERED: NON-FORMULARY ITEM (Apixaban*** [Eliquis 5 Mg Tablet***] 5 MG Tablet) PO SCH (10:00)
[2025-02-10] MEDS ORDERED: Protonix 40MG Tablet PO SCH (10:00)
--- NOTE | 2025-02-10 10:11 | PCM.DS ---
Discharge Summary Date of Admission: 02/09/25 20:10 Date of Discharge: 02/08/25 Admitting Physician: CAMILO DUMONT MD Primary Care Provider: BO BARRON Allergies Allergies No Known Drug Allergies Allergy (Unverified 12/16/22 01:47) Hospital Summary - Hospital Course Hospital Course: 02/10/25 The patient is a 79-year-old male with a medical history of hypertension, recent pacemaker placement, GERD, and atrial fibrillation who presented to the ED with complaints of fatigue, shortness of breath, nausea, dizziness, and palpitations. While palpitations are a chronic issue for him and well known to his wastewater technician, the fatigue and overall unwell feeling were new symptoms. He also reported dizziness associated with walking but denied any dizziness while lying down. He denied fever, cough, congestion, or any gastrointestinal or urinary symptoms. In the ED, his vital signs were stable. Initial workup, including troponins, D-dimer, and EKG, was unremarkable, with his rhythm noted to be paced. A chest X-ray was also negative. His wastewater technician at [facility] was contacted, but the facility was unable to accept transfers due to lack of bed availability, so the patient was admitted to [place] for overnight observation with plans to transfer to [facility]. An echocardiogram is scheduled to be completed prior to transfer. Laboratory results revealed low vitamin D and B12 levels, which were replaced, and education was provided on improving these deficiencies. The patient is refusing a head CT for further evaluation of dizziness, stating he does not feel it is necessary. His palpitations have since resolved, and he currently denies any further concerns. - Vitals & Intake/Output Vital Signs: Vital Signs Temperature 98.5 F 02/10/25 08:00 Pulse Rate 61 02/10/25 08:00 Respiratory Rate 22 02/10/25 08:00 Blood Pressure 144/80 02/10/25 08:00 O2 Sat by Pulse Oximetry 94 L 02/10/25 08:00 Intake & Output: Intake & Output 02/07/25 02/08/25 02/09/25 02/10/25 11:59 11:59 11:59 11:59 Intake Total 100 Balance 100 Weight 95.9 kg - Lab Result Diagrams: 02/10/25 04:45 02/10/25 04:45 Lab Results-Last 24 Hrs: Lab Results-Last 24 Hours 02/09/25 02/09/25 02/09/25 Range/Units 13:30 13:30 13:30 WBC 6.4 (4.23-9.07) x10^3/uL RBC 4.44 L (4.63-6.08) x10^6/uL Hgb 13.9 (13.7-17.5) g/dL Hct 41.5 (40.1-51.0) % MCV 93.5 H (79.0-92.2) fL MCH 31.3 (25.7-32.2) pg MCHC 33.5 (32.3-36.5) g/dL RDW 12.8 (11.6-14.4) % Plt Count 247 (163-337) x10^3/uL MPV 10.2 (9.4-12.4) fL Gran % 62.4 (34.0-67.9) % Immature Gran % (Auto) 0.3 (0.001-0.429) % Nucleat RBC Rel Count 0.0 (0.00-0.2) % Eos # (Auto) 0.08 (0.04-0.54) x10^3/uL Immature Gran # (Auto) 0.02 (0.001-0.031) x10^3u/L Absolute Lymphs (auto) 1.71 (1.32-3.57) x10^3/uL Absolute Monos (auto) 0.57 (0.30-0.82) x10^3/uL Absolute Nucleated RBC 0.00 (0.00-0.012) x10^3u/L Lymphocytes % 26.8 (21.8-53.1) % Monocytes % 8.9 (5.3-12.2) % Eosinophils % 1.3 (0.8-7.0) % Basophils % 0.3 (0.2-1.2) % Absolute Granulocytes 3.97 (1.78-5.38) x10^3/uL Basophils # 0.02 (0.01-0.08) x10^3/uL D-Dimer 0.38 (0.0-0.50) mg/L Sodium 141 (135-145) mmol/L Potassium 4.2 (3.5-5.1) mmol/L Chloride 107 (98-107) mmol/L Carbon Dioxide 22 (22-30) mmol/L Anion Gap 16.5 H (5-15) MEQ/L BUN 13 (9-20) mg/dL Creatinine 0.87 (0.66-1.25) mg/dL Estimated GFR 88.9 ML/MIN Glucose 104 (74-106) mg/dL Calcium 8.9 (8.4-10.2) mg/dL Total Bilirubin 1.50 H (0.2-1.3) mg/dL AST 44 (17-59) U/L ALT 26 (0-50) U/L Alkaline Phosphatase 70 (38-126) U/L Troponin I (0.000-0.033) ng/mL NT-Pro-B Natriuret Pep (<300) pg/mL Serum Total Protein 7.2 (6.3-8.2) g/dL Albumin 4.5 (3.5-5.0) g/dL Vitamin B12 (239-931) pg/mL 25-OH Vitamin D Total (30-100) ng/mL TSH 3rd Generation (0.470-4.680) mIU/L Influenza Type A Ag (NEGATIVE) Influenza Type B Ag (NEGATIVE) RSV (PCR) (NEGATIVE) SARS-CoV-2 (PCR) (NEGATIVE) 02/09/25 02/09/25 02/09/25 Range/Units 13:30 13:30 13:30 WBC (4.23-9.07) x10^3/uL RBC (4.63-6.08) x10^6/uL Hgb (13.7-17.5) g/dL Hct (40.1-51.0) % MCV (79.0-92.2) fL MCH (25.7-32.2) pg MCHC (32.3-36.5) g/dL RDW (11.6-14.4) % Plt Count (163-337) x10^3/uL MPV (9.4-12.4) fL Gran % (34.0-67.9) % Immature Gran % (Auto) (0.001-0.429) % Nucleat RBC Rel Count (0.00-0.2) % Eos # (Auto) (0.04-0.54) x10^3/uL Immature Gran # (Auto) (0.001-0.031) x10^3u/L Absolute Lymphs (auto) (1.32-3.57) x10^3/uL Absolute Monos (auto) (0.30-0.82) x10^3/uL Absolute Nucleated RBC (0.00-0.012) x10^3u/L Lymphocytes % (21.8-53.1) % Monocytes % (5.3-12.2) % Eosinophils % (0.8-7.0) % Basophils % (0.2-1.2) % Absolute Granulocytes (1.78-5.38) x10^3/uL Basophils # (0.01-0.08) x10^3/uL D-Dimer (0.0-0.50) mg/L Sodium (135-145) mmol/L Potassium (3.5-5.1) mmol/L Chloride (98-107) mmol/L Carbon Dioxide (22-30) mmol/L Anion Gap (5-15) MEQ/L BUN (9-20) mg/dL Creatinine (0.66-1.25) mg/dL Estimated GFR ML/MIN Glucose (74-106) mg/dL Calcium (8.4-10.2) mg/dL Total Bilirubin (0.2-1.3) mg/dL AST (17-59) U/L ALT (0-50) U/L Alkaline Phosphatase (38-126) U/L Troponin I < 0.012 (0.000-0.033) ng/mL NT-Pro-B Natriuret Pep (<300) pg/mL Serum Total Protein (6.3-8.2) g/dL Albumin (3.5-5.0) g/dL Vitamin B12 173 L (239-931) pg/mL 25-OH Vitamin D Total 14.9 L (30-100) ng/mL TSH 3rd Generation (0.470-4.680) mIU/L Influenza Type A Ag (NEGATIVE) Influenza Type B Ag (NEGATIVE) RSV (PCR) (NEGATIVE) SARS-CoV-2 (PCR) (NEGATIVE) 02/09/25 02/09/25 02/09/25 Range/Units 13:40 17:10 21:51 WBC (4.23-9.07) x10^3/uL RBC (4.63-6.08) x10^6/uL Hgb (13.7-17.5) g/dL Hct (40.1-51.0) % MCV (79.0-92.2) fL MCH (25.7-32.2) pg MCHC (32.3-36.5) g/dL RDW (11.6-14.4) % Plt Count (163-337) x10^3/uL MPV (9.4-12.4) fL Gran % (34.0-67.9) % Immature Gran % (Auto) (0.001-0.429) % Nucleat RBC Rel Count (0.00-0.2) % Eos # (Auto) (0.04-0.54) x10^3/uL Immature Gran # (Auto) (0.001-0.031) x10^3u/L Absolute Lymphs (auto) (1.32-3.57) x10^3/uL Absolute Monos (auto) (0.30-0.82) x10^3/uL Absolute Nucleated RBC (0.00-0.012) x10^3u/L Lymphocytes % (21.8-53.1) % Monocytes % (5.3-12.2) % Eosinophils % (0.8-7.0) % Basophils % (0.2-1.2) % Absolute Granulocytes (1.78-5.38) x10^3/uL Basophils # (0.01-0.08) x10^3/uL D-Dimer (0.0-0.50) mg/L Sodium (135-145) mmol/L Potassium (3.5-5.1) mmol/L Chloride (98-107) mmol/L Carbon Dioxide (22-30) mmol/L Anion Gap (5-15) MEQ/L BUN (9-20) mg/dL Creatinine (0.66-1.25) mg/dL Estimated GFR ML/MIN Glucose (74-106) mg/dL Calcium (8.4-10.2) mg/dL Total Bilirubin (0.2-1.3) mg/dL AST (17-59) U/L ALT (0-50) U/L Alkaline Phosphatase (38-126) U/L Troponin I 0.018 0.014 (0.000-0.033) ng/mL NT-Pro-B Natriuret Pep (<300) pg/mL Serum Total Protein (6.3-8.2) g/dL Albumin (3.5-5.0) g/dL Vitamin B12 (239-931) pg/mL 25-OH Vitamin D Total (30-100) ng/mL TSH 3rd Generation (0.470-4.680) mIU/L Influenza Type A Ag NEGATIVE (NEGATIVE) Influenza Type B Ag NEGATIVE (NEGATIVE) RSV (PCR) NEGATIVE (NEGATIVE) SARS-CoV-2 (PCR) NEGATIVE (NEGATIVE) 02/10/25 02/10/25 02/10/25 Range/Units 04:45 04:45 04:45 WBC 5.4 (4.23-9.07) x10^3/uL RBC 4.07 L (4.63-6.08) x10^6/uL Hgb 12.9 L (13.7-17.5) g/dL Hct 38.2 L (40.1-51.0) % MCV 93.9 H (79.0-92.2) fL MCH 31.7 (25.7-32.2) pg MCHC 33.8 (32.3-36.5) g/dL RDW 12.6 (11.6-14.4) % Plt Count 203 (163-337) x10^3/uL MPV 10.1 (9.4-12.4) fL Gran % (34.0-67.9) % Immature Gran % (Auto) (0.001-0.429) % Nucleat RBC Rel Count (0.00-0.2) % Eos # (Auto) (0.04-0.54) x10^3/uL Immature Gran # (Auto) (0.001-0.031) x10^3u/L Absolute Lymphs (auto) (1.32-3.57) x10^3/uL Absolute Monos (auto) (0.30-0.82) x10^3/uL Absolute Nucleated RBC (0.00-0.012) x10^3u/L Lymphocytes % (21.8-53.1) % Monocytes % (5.3-12.2) % Eosinophils % (0.8-7.0) % Basophils % (0.2-1.2) % Absolute Granulocytes (1.78-5.38) x10^3/uL Basophils # (0.01-0.08) x10^3/uL D-Dimer (0.0-0.50) mg/L Sodium 140 (135-145) mmol/L Potassium 3.5 (3.5-5.1) mmol/L Chloride 106 (98-107) mmol/L Carbon Dioxide 25 (22-30) mmol/L Anion Gap 13.1 (5-15) MEQ/L BUN 14 (9-20) mg/dL Creatinine 1.03 (0.66-1.25) mg/dL Estimated GFR 74.8 ML/MIN Glucose 114 H (74-106) mg/dL Calcium 8.5 (8.4-10.2) mg/dL Total Bilirubin (0.2-1.3) mg/dL AST (17-59) U/L ALT (0-50) U/L Alkaline Phosphatase (38-126) U/L Troponin I (0.000-0.033) ng/mL NT-Pro-B Natriuret Pep 298 (<300) pg/mL Serum Total Protein (6.3-8.2) g/dL Albumin (3.5-5.0) g/dL Vitamin B12 (239-931) pg/mL 25-OH Vitamin D Total (30-100) ng/mL TSH 3rd Generation 1.353 (0.470-4.680) mIU/L Influenza Type A Ag (NEGATIVE) Influenza Type B Ag (NEGATIVE) RSV (PCR) (NEGATIVE) SARS-CoV-2 (PCR) (NEGATIVE) - Radiology Exams Ordered Rad Exams-Entire Visit: Radiology Procedures Category Date Time Status CHEST 1 VIEW (PORTABLE) Stat Exams 02/09/25 16:15 Completed ECHO W/2D AND DOPPLER [US] Routine Exams 02/10/25 21:48 Ordered - Procedures and Test Procedures and Tests throughout Hospitalization: Therapy Orders & Screens 02/09/25 21:00 BiPap/CPAP HS Comment: Diagnosis: Heart palpitations, dizziness 02/09/25 21:48 PT Eval & Treat ( Order) ONCE Reason for Eval:: deconditioning Diagnosis: Heart palpitations, dizziness Discharge Exam General Appearance: no apparent distress, alert, obese Neurologic Exam: alert, oriented x 3, cooperative, normal mood/affect, nml cerebellar function, sensation nml, No motor deficits Eye Exam: PERRL, EOMI, eyes nml inspection Ears, Nose, Throat Exam: normal ENT inspection, pharynx normal, moist mucous membranes Neck Exam: normal inspection, non-tender, supple, full range of motion Respiratory Exam: normal breath sounds, lungs clear, No respiratory distress Cardiovascular Exam: regular rate/rhythm, normal heart sounds Gastrointestinal/Abdomen Exam: soft, No tenderness, No mass Male Genitalia Exam: deferred Rectal Exam: deferred Back Exam: normal inspection, normal range of motion, No CVA tenderness, No vertebral tenderness Extremity Exam: normal inspection, normal range of motion Skin Exam: normal color, warm, dry Final Diagnosis/Problem List - Final Discharge Diagnosis/Problem (1) Dizziness Current Visit: Yes Status: Acute Assessment & Plan: - Refusing CT head - Echo - Tele - EKG showed paced rhythm - Troponin x3 unremarkable - D-dimer negative - BNP 298 - PPM needs interrogated -Checked TSH/Vitamin B12, keep K/Mag at 4 and 2- labs reviewed Code(s): R42 - DIZZINESS AND GIDDINESS (2) Fatigue Current Visit: Yes Status: Acute Assessment & Plan: - See above plan for dizziness - VItamin B12 and VItamin D low- replacement started Code(s): R53.83 - OTHER FATIGUE (3) Heart palpitations Current Visit: Yes Status: Resolved Assessment & Plan: - Resolved since admission - Echo - Awaiting tx to [place] for further evaluation Code(s): R00.2 - PALPITATIONS (4) Hypertension Current Visit: No Status: Chronic Assessment & Plan: - BP stable - Continue home meds Code(s): I10 - ESSENTIAL (PRIMARY) HYPERTENSION (5) Vitamin B12 deficiency Current Visit: Yes Status: Acute Assessment & Plan: - Vitamin B12 173- replacement started- education provided Code(s): E53.8 - DEFICIENCY OF OTHER SPECIFIED B GROUP VITAMINS (6) Vitamin D deficiency Current Visit: Yes Status: Acute Assessment & Plan: - Vitamin D 14.9- replacement started - Education provided Code(s): E55.9 - VITAMIN D DEFICIENCY, UNSPECIFIED (7) Atrial fibrillation Current Visit: Yes Status: Chronic Assessment & Plan: - Resume Eliquis - Resume home metoprolol Code(s): I48.91 - UNSPECIFIED ATRIAL FIBRILLATION (8) GERD (gastroesophageal reflux disease) Current Visit: Yes Status: Chronic Assessment & Plan: - Continue pantoprazole Code(s): K21.9 - GASTRO-ESOPHAGEAL REFLUX DISEASE WITHOUT ESOPHAGITIS (9) Obesity (BMI 30.0-34.9) Current Visit: Yes Status: Chronic Assessment & Plan: - Advised ADA diet and exercise control Code(s): E66.811 - OBESITY, CLASS 1 (10) Hyperlipidemia Current Visit: Yes Status: Chronic Assessment & Plan: - Continue statin Code(s): E78.5 - HYPERLIPIDEMIA, UNSPECIFIED - Discharge Discharge Date: 02/10/25 Disposition: DC TO [facility] Condition: Stable Prescriptions: New Cyanocobalamin 100 Mcg [Vitamin B-12 100 Mcg] 100 mcg PO DAILY 30 Days #30 tablet Ergocalciferol (Vitamin D2) [Vitamin D2] 50,000 unit PO Q7D 30 Days #30 cap Continue Metoprolol Succinate [Toprol Xl] 75 mg PO BID lisinopriL [Lisinopril] 5 mg PO DAILY Pravastatin Sodium 40 mg PO DAILY PANTOPRAZOLE 40 mg Tablet [Protonix 40MG Tablet] 20 mg PO DAILY Apixaban [Eliquis 5 mg Tablet] 5 mg PO BID Sucralfate [Carafate] 500 mg PO QID Timolol Maleate/Dorzolam HCl [Cosopt Ophthalmic 10 ml] 10 ml OP BID Latanoprost 2.5 ml OP DAILY Instructions: Obesity, Adult, Vitamin B12 deficiency and folate deficiency, Vitamin D deficiency, Cyanocobalamin, Heart-healthy diet Follow up with: BO BARRON [Primary Care Provider]
[2025-02-10] MEDS: VITAMIN B-12 100 MCG PO SCH (10:35)
[2025-02-10] MEDS: COSOPT OPHTHALMIC 10 ML OP SCH (10:36)
[2025-02-10 12:05] VITALS: BP 139/80; RESP 20; TEMP 98.3; O2SAT 93
[2025-02-10] MEDS ORDERED: ELIQUIS 2.5 MG TABLET PO SCH (22:00)
[2025-02-10] MEDS ORDERED: Xalatan OP SCH (22:00)
== END 2025-02-10 13:55 | disposition home or self-care (01) ==
LOC: ED 12:59 → MED SURG 20:10
PROVIDERS: ADMIT Internal Medicine; ATTEND Internal Medicine
DX: R42 Dizziness and giddiness (principal); R53.83 Other fatigue; R00.2 Palpitations; I10 Essential (primary) hypertension; E53.8 Deficiency of other specified B group vitamins; E55.9 Vitamin D deficiency, unspecified; I48.91 Unspecified atrial fibrillation; Z79.01 Long term (current) use of anticoagulants; K21.9 Gastro-esophageal reflux disease without esophagitis; E66.9 Obesity, unspecified; Z79.899 Other long term (current) drug therapy
CPT/HCPCS: 0241U; 36415; 71045; 80048; 80053; 82306; 82607; 83880; 84443; 84484; 85025; 85027; 85379; 93005; 93041; 93306; 94760; 99285; A9270-GY

== ENCOUNTER 2025-08-24 11:34 | Emergency (ER) | payer MEDICARE, OTHER ==
[2025-08-24 11:43] VITALS: TEMP 97.8
[2025-08-24 12:03] LABS: BASOPHIL % 0.5 % (0.2-1.2); Basophil (Absolute #) 0.03 x10^3/uL (0.01-0.08); Eosinophil (Absolute #) 0.08 x10^3/uL (0.04-0.54); Hematocrit 43.1 % (40.1-51.0); Hemoglobin 14.5 g/dL (13.7-17.5); IMMATURE GRAN # 0.01 x10^3u/L (0.001-0.031); IMMATURE GRAN % 0.2 % (0.001-0.429); Lymphocyte (Absolute #) 1.73 x10^3/uL (1.32-3.57); Mean Corpuscular Hemoglobin 31.6 pg (25.7-32.2); Mean Corpuscular Hgb Concent. 33.6 g/dL (32.3-36.5); Monocyte (Absolute #) 0.54 x10^3/uL (0.30-0.82); NUCLEATED RBC # 0.00 x10^3u/L (0.00-0.012); NUCLEATED RBC % 0.0 % (0.00-0.2); Platelet Count 256 x10^3/uL (163-337); Red Blood Count 4.59 x10^6/uL (4.63-6.08); White Blood Count 6.3 x10^3/uL (4.23-9.07)
--- NOTE | 2025-08-24 12:05 | ERPHSYRPT ---
- History of Present Illness Time Seen by Provider: 08/24/25 12:00 Source: patient Exam Limitations: no limitations Patient Subjective Stated Complaint: PT STATES HE IS HAVING CHEST PALPITATIONS Triage Nursing Assessment: PT ARRIVES TO THE ED FROM [facility], HE IS WHEELED IN BY A NURSE. PT IS ALERT AND ORIENTED X4, RESPIRATIONS EQUAL, PULSES EQUAL BILATERALLY. PT STATES HE WAS TRYING TO MOVE SOME CALVES INTO A TRAILER WHEN ONE OF THE CALVES KNOCKED HIM DOWN TO THE GROUND. HE WAS HIT IN THE CHEST WHERE HE HAS A PACEMAKER AND HAS BEEN HAVING PALPITATIONS EVER SINCE. PT DOES STATE THAT HE HIT HIS HEAD BUT DID NOT LOSE CONSCIOUSNESS. Physician History: Patient is a 80-year-old male history of hypertension hyperlipidemia A-fib on Eliquis currently has a pacemaker presents to our ED for evaluation of left shoulder pain and heart palpitations. Patient states he was loading a trailer with livestock. Patient states the cow became rambunctious and knocked him over. Patient went to [facility] and then referred to our ED for evaluation of heart palpitations and left shoulder pain. Patient attributes his left shoulder pain to a fall. Patient did hit his head. No loss of consciousness. Left shoulder pain described as an ache that is localized. Patient states the pain is "deep inside shoulder" shoulder pain worse with movement. Pain improved with rest. No neck pain. Cervical spine cleared clinically. at bedside. They voiced no other complaints or concerns at this time. Portions of this note were created with voice recognition technology. There may be grammatical, spelling, punctuation or sound alike errors Timing/Duration: today Severity: moderate Modifying Factors: Improves With: movement Associated Symptoms: denies symptoms Allergies/Adverse Reactions: No Known Drug Allergies Allergy (Verified 08/24/25 11:36) Home Medications: Apixaban [Eliquis 5 mg Tablet] 5 mg PO BID 12/16/22 [History] Metoprolol Succinate [Toprol Xl] 75 mg PO BID 12/16/22 [History] PANTOPRAZOLE 40 mg Tablet [Protonix 40MG Tablet] 20 mg PO DAILY 12/16/22 [History] Pravastatin Sodium 40 mg PO DAILY 12/16/22 [History] lisinopriL [Lisinopril] 5 mg PO DAILY 12/16/22 [History] Sucralfate [Carafate] 500 mg PO QID 02/09/25 [History] Timolol Maleate/Dorzolam HCl [Cosopt Ophthalmic 10 ml] 10 ml OP BID 02/10/25 [History] Hx Tetanus, Diphtheria Vaccination/Date Given: No Hx Influenza Vaccination/Date Given: Yes Hx Pneumococcal Vaccination/Date Given: No Immunizations Up to Date: Yes Travel Risk - International Travel Have you traveled outside of the country in past 3 weeks: No - Emerging Infectious Disease Are you exhibiting symptoms associated with any current EIDs: No - Review of Systems All Other Systems: Reviewed and Negative - Past Medical History Pertinent Past Medical History: Yes Neurological History: No Pertinent History ENT History: Cataracts, Glaucoma Cardiac History: Arrhythmia, High Cholesterol, Hypertension Respiratory History: No Pertinent History Endocrine Medical History: No Pertinent History Musculoskeletal History: Arthritis GI Medical History: GERD, Hemorrhoids History: No Pertinent History Psycho-Social History: No Pertinent History Male Reproductive Disorders: No Pertinent History - Past Surgical History Past Surgical History: Yes Neuro Surgical History: No Pertinent History Cardiac: Pacemaker Respiratory: No Pertinent History Gastrointestinal: No Pertinent History Genitourinary: No Pertinent History Musculoskeletal: Orthopedic Surgery Male Surgical History: No Pertinent History Other Surgical History: left knee replacement Significant Family History: no pertinent family hx - Social History Smoking Status: Never smoker Exposure to second hand smoke: No Drug Use: none - Social Determinants of Health Will the patient participate in the screening: Yes Do you worry about a steady place to live?: No Do you have any problems with any of the following?: No known problems In the past 12 months,have you had to go without utilities?: No Transportation Issues: No Has anyone in your support network made you feel unsafe?: No Have you or anyone in your house had to go w/o enough food: No - Nursing Vital Signs Nursing Vital Signs: Initial Vital Signs Pulse Rate 59 L 08/24/25 11:37 Respiratory Rate 20 08/24/25 11:37 Blood Pressure 140/85 08/24/25 11:37 O2 Sat by Pulse Oximetry 97 08/24/25 11:37 Pain Scale Pain Intensity 2 - Physical Exam General Appearance: no apparent distress, alert Eye Exam: PERRL/EOMI, eyes nml inspection Ears, Nose, Throat Exam: normal ENT inspection, moist mucous membranes Neck Exam: normal inspection, full range of motion Respiratory Exam: normal breath sounds, lungs clear, No respiratory distress Cardiovascular Exam: regular rate/rhythm, normal heart sounds, normal peripheral pulses Gastrointestinal/Abdomen Exam: soft, normal bowel sounds, No tenderness, No mass Back Exam: normal inspection, normal range of motion, No CVA tenderness, No vertebral tenderness Extremity Exam: normal inspection, normal range of motion, pelvis stable Neurologic Exam: alert, oriented x 3, cooperative, normal mood/affect, sensation nml, No motor deficits Skin Exam: normal color, warm, dry, No rash Lymphatic Exam: No adenopathy SpO2 Interpretation: normal SpO2: 96 O2 Delivery: Room Air - Course Nursing assessment & vital signs reviewed: Yes EKG Interpreted by Me: RATE (66 atrial paced complexes), NORMAL AXIS, NORMAL INTERVALS, Right Bundle Branch Block - Radiology Exams Shoulder X-ray Interpretation: Discussed w/ radiologist (. No acute abnormalities ) - CT Exams Head CT Interpretation: Tele-radiologist Report (: Nonacute senile brain.) Chest CT Interpretation: Tele-radiologist Report (No new/acute findings.) Ordered Tests: Active Orders 24 hr Category Date Time Status Novelty Candy Maker STAT Care 08/24/25 11:43 Active EKG-ER Only STAT Care 08/24/25 11:42 Active IV Insertion STAT Care 08/24/25 11:42 Active Pulse Oximetry (ED) STAT Care 08/24/25 11:42 Active CHEST 1 VIEW (PORTABLE) Stat Exams 08/24/25 12:08 Completed HEAD WITHOUT CONTRAST [CT] Stat Exams 08/24/25 11:59 Completed SHOULDER Stat Exams 08/24/25 12:23 Completed CBC W DIFF Stat Lab 08/24/25 12:00 Completed CMP Stat Lab 08/24/25 12:00 Completed MAGNESIUM Stat Lab 08/24/25 12:00 Completed NT PRO BNPII Stat Lab 08/24/25 12:00 Completed TROPONIN Q4H Lab 08/24/25 12:00 Completed TROPONIN Q4H Lab 08/24/25 14:35 Completed TROPONIN Q4H Lab 08/24/25 19:45 Ordered UA W/RFX UR CULTURE Stat Lab 08/24/25 12:14 Completed Urine Triage Profile Stat Lab 08/24/25 12:14 Completed Medication Summary Discontinued Medications Generic Name Dose Route Start Last Admin Trade Name Freq PRN Reason Stop Dose Admin Acetaminophen 1,000 mg 08/24/25 14:45 08/24/25 14:48 Acetaminophen 500 Mg Tablet PO 08/24/25 14:46 1,000 mg STAT STA Administration Acetaminophen Confirm 08/24/25 14:47 Acetaminophen 500 Mg Tablet Administered 08/24/25 14:48 Dose 1,000 mg .ROUTE .[facility] Lab/Rad Data: Laboratory Result Diagrams 08/24/25 12:00 08/24/25 12:00 Laboratory Results 08/24/25 08/24/25 08/24/25 Range/Units 14:35 12:14 12:14 WBC (4.23-9.07) x10^3/uL RBC (4.63-6.08) x10^6/uL Hgb (13.7-17.5) g/dL Hct (40.1-51.0) % MCV (79.0-92.2) fL MCH (25.7-32.2) pg MCHC (32.3-36.5) g/dL RDW (11.6-14.4) % Plt Count (163-337) x10^3/uL MPV (9.4-12.4) fL Gran % (34.0-67.9) % Immature Gran % (Auto) (0.001-0.429) % Nucleat RBC Rel Count (0.00-0.2) % Eos # (Auto) (0.04-0.54) x10^3/uL Immature Gran # (Auto) (0.001-0.031) x10^3u/L Absolute Lymphs (auto) (1.32-3.57) x10^3/uL Absolute Monos (auto) (0.30-0.82) x10^3/uL Absolute Nucleated RBC (0.00-0.012) x10^3u/L Lymphocytes % (21.8-53.1) % Monocytes % (5.3-12.2) % Eosinophils % (0.8-7.0) % Basophils % (0.2-1.2) % Absolute Granulocytes (1.78-5.38) x10^3/uL Basophils # (0.01-0.08) x10^3/uL Sodium (135-145) mmol/L Potassium (3.5-5.1) mmol/L Chloride (98-107) mmol/L Carbon Dioxide (22-30) mmol/L Anion Gap (5-15) MEQ/L BUN (9-20) mg/dL Creatinine (0.66-1.25) mg/dL Estimated GFR ML/MIN Glucose (74-106) mg/dL Calcium (8.4-10.2) mg/dL Magnesium (1.6-2.3) mg/dL Total Bilirubin (0.2-1.3) mg/dL AST (17-59) U/L ALT (0-50) U/L Alkaline Phosphatase (38-126) U/L Troponin I < 0.012 (0.000-0.033) ng/mL NT-Pro-B Natriuret Pep (<300) pg/mL Serum Total Protein (6.3-8.2) g/dL Albumin (3.5-5.0) g/dL Urine Color Yellow (Yellow) Urine Appearance Clear (Clear) Urine pH 6.0 (4.6-8.0) Ur Specific [place] 1.010 (1.005-1.030) Urine Protein Negative (Negative) Urine Glucose (UA) Negative (Negative) mg/dL Urine Ketones Negative (Negative) Urine Blood Negative (Negative) Urine Nitrite Negative (Negative) Urine Bilirubin Negative (Negative) Urine Urobilinogen 0.2 (0.2) mg/dL Ur Leukocyte Esterase Negative (Negative) U Hyaline Cast (Auto) NONE SEEN (0-2) /LPF Urine Microscopic RBC 0-2 (0-5) /HPF Urine Microscopic WBC 0-2 (0-5) /HPF Ur Epithelial Cells None Seen (None Seen) /HPF Urine Bacteria None Seen (None Seen) /HPF Urine Sperm Few A (None Seen) /HPF Urine Culture Reflexed NO (NO) Urine Opiates Level NEGATIVE (NEGATIVE) Ur Methadone NEGATIVE (NEGATIVE) Urine Barbiturates NEGATIVE (NEGATIVE) Ur Phencyclidine (PCP) NEGATIVE (NEGATIVE) Urine Amphetamine NEGATIVE (NEGATIVE) U Benzodiazepine Level NEGATIVE (NEGATIVE) Urine Cocaine NEGATIVE (NEGATIVE) Urine Marijuana (THC) NEGATIVE (NEGATIVE) 08/24/25 08/24/25 08/24/25 Range/Units 12:00 12:00 12:00 WBC 6.3 (4.23-9.07) x10^3/uL RBC 4.59 L (4.63-6.08) x10^6/uL Hgb 14.5 (13.7-17.5) g/dL Hct 43.1 (40.1-51.0) % MCV 93.9 H (79.0-92.2) fL MCH 31.6 (25.7-32.2) pg MCHC 33.6 (32.3-36.5) g/dL RDW 11.9 (11.6-14.4) % Plt Count 256 (163-337) x10^3/uL MPV 10.0 (9.4-12.4) fL Gran % 61.9 (34.0-67.9) % Immature Gran % (Auto) 0.2 (0.001-0.429) % Nucleat RBC Rel Count 0.0 (0.00-0.2) % Eos # (Auto) 0.08 (0.04-0.54) x10^3/uL Immature Gran # (Auto) 0.01 (0.001-0.031) x10^3u/L Absolute Lymphs (auto) 1.73 (1.32-3.57) x10^3/uL Absolute Monos (auto) 0.54 (0.30-0.82) x10^3/uL Absolute Nucleated RBC 0.00 (0.00-0.012) x10^3u/L Lymphocytes % 27.5 (21.8-53.1) % Monocytes % 8.6 (5.3-12.2) % Eosinophils % 1.3 (0.8-7.0) % Basophils % 0.5 (0.2-1.2) % Absolute Granulocytes 3.89 (1.78-5.38) x10^3/uL Basophils # 0.03 (0.01-0.08) x10^3/uL Sodium 138 (135-145) mmol/L Potassium 4.5 (3.5-5.1) mmol/L Chloride 105 (98-107) mmol/L Carbon Dioxide 23 (22-30) mmol/L Anion Gap 14.6 (5-15) MEQ/L BUN 15 (9-20) mg/dL Creatinine 0.97 (0.66-1.25) mg/dL Estimated GFR 79.9 ML/MIN Glucose 111 H (74-106) mg/dL Calcium 9.0 (8.4-10.2) mg/dL Magnesium 1.9 (1.6-2.3) mg/dL Total Bilirubin 1.00 (0.2-1.3) mg/dL AST 29 (17-59) U/L ALT 23 (0-50) U/L Alkaline Phosphatase 53 (38-126) U/L Troponin I < 0.012 (0.000-0.033) ng/mL NT-Pro-B Natriuret Pep 99.3 (<300) pg/mL Serum Total Protein 7.6 (6.3-8.2) g/dL Albumin 4.3 (3.5-5.0) g/dL Urine Color (Yellow) Urine Appearance (Clear) Urine pH (4.6-8.0) Ur Specific [place] (1.005-1.030) Urine Protein (Negative) Urine Glucose (UA) (Negative) mg/dL Urine Ketones (Negative) Urine Blood (Negative) Urine Nitrite (Negative) Urine Bilirubin (Negative) Urine Urobilinogen (0.2) mg/dL Ur Leukocyte Esterase (Negative) U Hyaline Cast (Auto) (0-2) /LPF Urine Microscopic RBC (0-5) /HPF Urine Microscopic WBC (0-5) /HPF Ur Epithelial Cells (None Seen) /HPF Urine Bacteria (None Seen) /HPF Urine Sperm (None Seen) /HPF Urine Culture Reflexed (NO) Urine Opiates Level (NEGATIVE) Ur Methadone (NEGATIVE) Urine Barbiturates (NEGATIVE) Ur Phencyclidine (PCP) (NEGATIVE) Urine Amphetamine (NEGATIVE) U Benzodiazepine Level (NEGATIVE) Urine Cocaine (NEGATIVE) Urine Marijuana (THC) (NEGATIVE) - Progress Progress: improved Progress Note: Case discussed with patient's invoice clerk who is requesting a fax copy of patient's EKG. I spoke to Dr. Ribeiro at 3:43 PM EKG faxed to [phone] 08/24/25 15:47 Dr. Ribeiro returned call at approximately 4:25 PM. He reviewed patient's EKG and the defibrillator interrogation. He states that the EKG shows a PVC and patient appeared to have been in A-fib for several hours on August 21. He advised increasing patient's metoprolol to 100 mg twice a day and to follow-up in his office. Per Dr. Ribeiro patient may be discharged home with follow-up. Patient's next clinic appointment is next month. However our nursing staff will try to move the follow-up date to a sooner time. Patient states he is ready for discharge. He is asymptomatic. No chest pain no shortness of breath no nausea vomiting or diaphoresis. Patient did not experience any episodes of heart palpitations in our ED. CT head was completed as patient is on Eliquis. No acute intracranial pathology. Chest x-ray shows no acute findings. No fracture dislocations on shoulder x-ray. Will refer patient to the orthopedic clinic for his shoulder pain. Patient's is at bedside. They voiced no other complaints or concerns at this time. Patient agrees to increase his metoprolol to 100 mg twice a day History obtained from patient and his . Dr. Matos independently reviewed and interpreted the x-ray of the chest and shoulder. No acute findings observed. This is a preliminary read. Formal read confirms no acute findings. Differential diagnosis includes PVC, atrial fibrillation, SVT, atrial/ventricular tachycardia Complexity of problems addressed is moderate acute complicated. No critical care time. Complexity of data reviewed and analyzed extensive. Test ordered test reviewed results analyzed and correlated clinically with history and physical exam. Risk of complication or risk of morbidity/mortality of patient management is low. Vital stable. Time spent to discharge patient is approximately 15 minutes. Plan of care established for shared decision making. No social determinants of health present to impede follow-up. Portions of this note were created with voice recognition technology. There may be grammatical, spelling, punctuation or sound alike errors 08/24/25 16:30 08/24/25 16:34 Counseled pt/family regarding: lab results, diagnosis, rad results - Departure Departure Disposition: Home Clinical Impression: Fall, Sprain of left shoulder, Heart palpitations Condition: Stable Critical Care Time: No Referrals: [facility]ARRON [NON-STAFF PHY W/O PRIVILEGES] - Follow up/PCP as directed Additional Instructions: Discharge/Care Plan CHRISTY LINARES was seen on 08/24/25 in the Emergency Room. The patient was counseled regarding Diagnosis,Lab results, Imaging studies, need for follow up and when to return to the Emergency Room. Prescriptions given: Discharge Note I have spoken with the patient and/or caregivers. I have explained the patient's condition, diagnosis and treatment plan based on the information available to me at this time. I have answered the patient's and/or caregiver's questions and addressed any concerns. The patient and/or caregivers have as good understanding of the patient's diagnosis, condition and treatment plan as can be expected at this point. The vital signs have been stable. The patient's condition is stable and appropriate for discharge from the emergency department. The patient will pursue further outpatient evaluation with the primary care physician or other designated or consulting physician as outlined in the discharge instructions. The patient and/or caregivers are agreeable to this plan of care and follow-up instructions have been explained in detail. The patient and/or caregivers have received these instruction. The patient/and or caregivers are aware that any significant change in condition or worsening of symptoms should prompt an immediate return to this or the closest emergency department or call 911.
[2025-08-24 12:27] LABS: Calcium 9.0 mg/dL (8.4-10.2); Carbon Dioxide 23.0 mmol/L (22-30); Creatinine 1 0.97 mg/dL (0.66-1.25); EST GLOMERULAR FILTRATION RATE 79.9 ML/MIN; Glucose 111.0 mg/dL (74-106); NT PRO BNPII 99.3 pg/mL (<300); Potassium 4.5 mmol/L (3.5-5.1); SGOT/AST 29.0 U/L (17-59); SGPT/ALT 23.0 U/L (0-50); Total Protein 7.6 g/dL (6.3-8.2)
--- NOTE | 2025-08-24 12:36 | XRAY ---
Indication: Palpitations. Comparison: February 09, 2025 Portable chest unchanged again hyperinflated with minimal left base subsegmental atelectasis/scarring. Remaining lungs clear. Heart not enlarged again with left pacemaker. Bony thorax intact again with osteopenia and mild degenerative changes. No new/acute findings.
--- NOTE | 2025-08-24 12:38 | XRAY ---
Indication: Pain. Comparison: None 3 view left shoulder demonstrates osteopenia, moderate AC degenerative arthropathy with inferior spurring, mild multilevel thoracic degenerative spondylosis, incompletely visualized left dual lead pacemaker, and minimal left lung base subsegmental atelectasis/scarring. No acute abnormalities.
--- NOTE | 2025-08-24 12:52 | XRAY ---
Indication: Head injury. Trauma. Blood thinners. Multiple contiguous axial images obtained through the head without contrast. Comparison: None Age-appropriate global atrophy and minimal periventricular degenerative microischemia bilaterally. No acute intracranial hemorrhage, abnormal extra-axial fluid collection, or mass effect. 4th ventricle is midline without hydrocephalus. Bony calvarium intact. Visualized paranasal sinuses and mastoid air cells are clear. Impression: Nonacute senile brain.
[2025-08-24 13:01] VITALS: PULSE 60
[2025-08-24 13:05] LABS: Glucose, Urine Negative (Negative); Protein,Urine Dip Negative (Negative); RBC 0-2 /HPF (0-5); WBC 0-2 /HPF (0-5)
[2025-08-24 13:18] LABS: Amphetamine,Urine NEGATIVE (NEGATIVE); Barbiturate,Urine NEGATIVE (NEGATIVE); Benzodiazepine,Urine NEGATIVE (NEGATIVE); Cocaine,Urine NEGATIVE (NEGATIVE); Methadone,Urine NEGATIVE (NEGATIVE); Opiate,Urine NEGATIVE (NEGATIVE); PCP,Urine NEGATIVE (NEGATIVE); THC,Urine NEGATIVE (NEGATIVE)
[2025-08-24] MEDS ORDERED: TYLENOL EXTRA STRENGTH 500 MG ONE (14:47)
[2025-08-24] MEDS: TYLENOL EXTRA STRENGTH 500 MG PO STA (14:48)
[2025-08-24 16:35] VITALS: BP 137/79; RESP 15
[2025-08-24 16:39] VITALS: O2SAT 96
== END 2025-08-24 16:46 | disposition home or self-care (01) ==
LOC: ED 11:34
DX: S43.402A Unspecified sprain of left shoulder joint, initial encounter (principal); W18.39XA Other fall on same level, initial encounter; W55.22XA Struck by cow, initial encounter; R00.2 Palpitations; I10 Essential (primary) hypertension; Z79.01 Long term (current) use of anticoagulants; Z79.899 Other long term (current) drug therapy